=== PATIENT | female | born 1995 | race Caucasian/White ===

== ENCOUNTER 2024-09-29 20:36 | Emergency (ER) | payer OTHER, SELFPAY ==
[2024-09-29 20:56] VITALS: BP 127/80; PULSE 99; RESP 18; TEMP 36.9; O2SAT 100
--- NOTE | 2024-09-29 20:59 | ED_ITS ---
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 Patient complains of left knee pain, states she was at work when she was hit in the left knee with a forklift that was caring a pile of wood. Patient states that incident happened around 4:00 p.m. this afternoon. Patient states that her knee was squished against boxes and the forklift. Patient reports that it hit her on the lateral aspect of her left knee. Patient states she did take ibuprofen and acetaminophen around 4:00 p.m. and does have some improvement of pain. Patient denies any tingling, numbness, no other injuries or complaints, patient is not on chronic anticoagulation. Related Data Home Medications ?Medication ?Instructions ?Recorded ?Confirmed No Known Home Medications 09/29/24 08/0 03/25 Allergies Allergy/AdvReac Type Severity Reaction Status Date / Time No Known Drug Allergies Allergy Verified 09/29/24 20:59 Review of Systems Narrative: Past medical history, past surgical history, medications, allergies, family history, and social history were reviewed with the patient. No additional perti nent items. A medically appropriate review of systems was performed with pertinent positives and negatives noted in HPI, all other systems negative. [facility] Medical History (Updated 09/29/24 @ 23:30 by Valeri Durham MD) Shoulder pain ?M25.519 - Pain in unspecified shoulder (ICD-10) Neck Pain ?M54.2 - Cervicalgia (ICD-10) Social History Smoking Status: Light tobacco smoker How often do you have a drink containing alcohol: 2-3 times a week How many standard drinks containing alcohol do you have on a typical day: 1 or 2 AUDIT-C Alcohol total score: 3 Non-prescribed substance use: denies use Exam Narrative: Exam Narrative: General: Afebrile, no acute distress HEENT: Normocephalic, atraumatic, conjunctiva normal. MMM Neck: non-tender, supple Cardio: regular rate. regular rhythm Resp: Normal work of breathing, no respiratory distress, lungs clear bilaterally, no wheezing, rhonchi, rales Chest/Back: no visual signs of trauma, no midline tenderness, no CVA tenderness Abdomen: soft, non distension, no tenderness, no peritoneal signs Neuro: alert and fully oriented. CN II-XII intact. Grossly normal strength and sensation in all extremities. MSK: +Left knee with swelling, ecchymosis noted to left lower lateral aspect of knee and left lateral aspect of proximal tib/fib, TTP, decrease ROM of knee 2/2 to pain, swelling, compartments soft, distally NVI with PT and DP intact Integumentary/Skin: no rash visualized, normal color Psych: normal affect, normal behavior Const: Vital Signs, click to edit/add: Vital Signs - 24 hr 09/29/24 20:56 Temperature 98.4 F Pulse Rate [Right Pulse Oximeter] 99 Respiratory Rate 18 Blood Pressure [Ri ght Upper Arm] 127/80 Pulse Oximetry 100 Oxygen Delivery Me thod Room Air Course Vital Signs Vital signs: Initial Vital Signs Temperature 98.4 F 09/29/24 20:56 Temperature Source Temporal Artery Scan 09/29/24 20:56 Pulse Rate 99 09/29/24 20:56 Respiratory Rate 18 09/29/24 20:56 Blood Pressure 127/80 09/29/24 20:56 Blood Pressure Mean 95 09/29/24 20:56 Blood Pressure Position Sitting 09/29/24 20:56 Pulse Oximetry 100 09/29/24 20:56 Oxygen Delivery Method Room Air 09/29/24 20:56 Vital Signs Temperature 98.4 F 09/29/24 20:56 Pulse Rate 99 09/29/24 20:56 Respiratory Rate 18 09/29/24 20:56 Blood Pressure 127/80 09/29/24 20:56 Pulse Oximetry 100 09/29/24 20:56 Oxygen Delivery Method Room Air 09/29/24 20:56 Temperature 98.4 F 09/29/24 20:56 Pulse Rate 99 09/29/24 20:56 Respiratory Rate 18 09/29/24 20:56 Blood Pressure 127/80 09/29/24 20:56 Pulse Oximetry 100 09/29/24 20:56 Oxygen Delivery Method Room Air 09/29/24 20:56 Medications Administered Medications: Discontinued Medications Generic Name Dose Route Start Last Admin Trade Name Freq PRN Reason Stop Dose Admin Oxycodone HCl 5 mg 09/29/24 21:30 09/29/24 21:34 Oxycodone 5 Mg Tablet PO 09/29/24 21:31 5 mg ONCE ONE Administration MDM - Extremity Injury (Lower) MDM Narrative Medical decision making narrative: Mayra is a 29-year-old female who presents the emergency department for evaluation left knee pain and being hit by forklift around 4pm this afternoon. Upon arrival patient is nontoxic appearing, afebrile, in distress secondary to pain patient hemodynamically stable vital signs within normal limits. Differential diagnosis includes was not limited to fracture versus dislocation versus ecchymosis/contusion/hematoma/effusion among others. Patient was treated with oxycodone, x-rays performed. I personally reviewed and interpreted x-rays of the left knee and x-rays of the tib/fib which demonstrate no acute fracture, dislocation, significant joint effusion. no acute traumatic injury. There is an of long sclerotic lesion along the posterior medial cortex of the proximal fibula 1 x 5 x 0.7 cm maximum dimension, may representing a nonaggressive bone lesion such as melorheostosis. I discussed results with patient and family. On re-evaluation patient resting comfortably reports improvement of symptoms. I discussed results and incidental findings with patient. Patient feels comfortable discharge home and close outpatient follow-up with her primary care provider, weight-bearing as tolerated, Tylenol and ibuprofen as needed for pain, ice, elevation. Patient declined anything stronger for pain to go home with. Strict return precautions discussed if severe pain, tingling, numbness, weakness, any worsening symptoms. Patient and spouse understand agrees the plan. Discharge Plan Discharge Clinical Impression: Acute pain of left knee Patient Disposition: Home, Self-Care Condition: Improved Additional Instructions: Please follow-up with your primary care provider in the next 3-5 days for further evaluation and follow-up. Please call to schedule appointment. Your x- rays today did not show any fractures or dislocation of your bones. 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 Please follow-up with your primary care provider regarding this. Please alternate taking Tylenol 1000 mg and ibuprofen 600 mg every 6 hours as needed for pain. If you alternate these medications you should be taking something every 3 hours. Please ice on and off for the next 1-2 days. Please bear weight as tolerated. Return to the emergency department if severe pain, weakness in your lower extremity, tingling, numbness, worsening symptoms. It was a pleasure taking care of you today. We hope you feel better soon. Prescriptions: No Action No Known Home Medications Follow Up/Referrals: Provider,Not a Local [Primary Care Provider, Family Practice] Stand Alone Forms: [employer] Info Instructions
--- NOTE | 2024-09-29 21:01 | CRLHL7_ITS ---
For Patients: As a result of the Cures Act, medical imaging exams and procedure reports are released immediately into your electronic medical record. You may view this report before your referring provider. If you have questions, please contact your health care provider. INDICATION: Struck in knee by forklift, injury TECHNIQUE: Knee radiograph 3 views left COMPARISON: None FINDINGS: Bone: There is an oblong sclerotic lesion present along the posteromedial cortex of the proximal fibula, measuring 1 x 5 x 0.7 cm max dimension. This may represent a nonaggressive bone lesion such as melorheostosis. Joint: The medial, lateral, and patellofemoral compartments are unremarkable. No significant knee effusion is seen. Soft tissue: Unremarkable. No radiopaque foreign bodies are seen. IMPRESSION: 1. No acute osseous injuries or abnormalities are noted. Dictated by Aidan Jones MD @ 09/29/2024 10:15:01 PM Dictated by: Aidan Jones MD @ 09/29/2024 22:15:05 (Electronically Signed)
--- NOTE | 2024-09-29 21:30 | CRLHL7_ITS ---
For Patients: As a result of the Cures Act, medical imaging exams and procedure reports are released immediately into your electronic medical record. You may view this report before your referring provider. If you have questions, please contact your health care provider. INDICATION: Struck in knee by forklift, trauma, tibia injury TECHNIQUE: Tibia-fibula radiograph 2 views left COMPARISON: None FINDINGS: Bone: There is an oblong sclerotic lesion present within the proximal fibular diaphysis which may represent a nonaggressive bone lesion such as melorheostosis. No acute osseous injuries or aggressive bone lesions are identified. Joint: The visualized knee and ankle joints are unremarkable. No significant joint effusion is seen. Soft tissue: Unremarkable. No radiopaque foreign bodies are seen. IMPRESSION: 1. No acute osseous injuries or abnormalities are noted. Dictated by Aidan Jones MD @ 09/29/2024 10:16:07 PM Dictated by: Aidan Jones MD @ 09/29/2024 22:16:13 (Electronically Signed)
== END 2024-09-29 23:54 | disposition home or self-care (01) ==
PROVIDERS: Emergency Provider Emergency Medicine
DX: M25.562 Pain in left knee (principal); W22.8XXA Striking against or struck by other objects, initial encounter
CPT/HCPCS: 73562; 73590; 99283; 99285; A9270

== ENCOUNTER 2024-10-24 08:13 | Outpatient (CLI) | payer OTHER, SELFPAY ==
--- NOTE | 2024-10-24 08:15 | CRLHL7_ITS ---
For Patients: As a result of the Century Cures Act, medical imaging exams and procedure reports are released immediately into your electronic medical record. You may view this report before your referring provider. If you have questions, please contact your health care provider. CLINICAL INDICATION: Left knee contusion. COMPARISON STUDIES: Radiographs from 09/29/2024. TECHNICAL: Noncontrast MRI of the left knee. 1.5 sigrid MRI scanner. Axial, sagittal and coronal T1, PD, PD FS and T2 FS images. FINDINGS: MEDIAL COMPARTMENT: Medial Meniscus: Intact. Articular Cartilage: Maintained. LATERAL COMPARTMENT: Lateral Meniscus: Intact. Articular Cartilage: Maintained. PATELLOFEMORAL COMPARTMENT: Articular Cartilage: Mild heterogeneity of the patellar articular cartilage compatible with mild softening. No focal surface defect. Trochlear articular cartilage maintained. LIGAMENTS: Anterior Cruciate Ligament: Intact. Posterior Cruciate Ligament: Intact. MEDIAL COLLATERAL LIGAMENT AND POSTEROMEDIAL CORNER COMPLEX: Medial Collateral Ligament: Intact. Medial Head of the Gastrocnemius and Semimembranosus Tendons: Normal. LATERAL COLLATERAL LIGAMENT COMPLEX AND POSTEROLATERAL CORNER COMPLEX: Fibular Collateral Ligament: Normal. Distal Biceps Femoris Tendon Complex: Normal. Iliotibial Band: Normal. Popliteus Tendon: Normal. Posterolateral Corner Capsule: Normal. EXTENSOR MECHANISM: Distal Quadriceps Tendon: Intact. Patellar Tendon: Intact. Medial Patellar Retinaculum and Medial Patellofemoral Ligament: Intact. Lateral Patellar Retinaculum: Intact. Normal patellar alignment. No patella marcie. Normal trochlear depth. Normal lateral trochlear inclination. JOINT SPACE AND CAPSULE: No significant joint effusion. No joint bodies. BONES AND SOFT TISSUES: There is no acute fracture. The sclerosis within the proximal fibula may relate to melorheostosis versus bone island/enostosis. Probable remote healed NOF of the posteromedial proximal tibial metaphysis.No significant popliteal cyst.No space-occupying hematoma. IMPRESSION: 1. No ligament disruption, acute fracture or joint effusion. 2. Menisci intact. 3. Mild chondromalacia of the patella. 4. No space-occupying hematoma. Dictated by Donovan Ziegler MD @ 10/25/2024 8:09:09 AM (Electronically Signed)
== END 2024-10-24 08:14 | disposition home or self-care (01) ==
PROVIDERS: Visit Provider Family Medicine
DX: M25.562 Pain in left knee (principal); M22.42 Chondromalacia patellae, left knee; S80.02XD Contusion of left knee, subsequent encounter
CPT/HCPCS: 73721; T1013

== ENCOUNTER 2024-11-28 14:47 | Outpatient (RCR) | payer OTHER, SELFPAY | END 2025-01-04 13:42 | disposition home or self-care (01) | PROVIDERS: Visit Provider Orthopaedic Surgery Sports Medicine | DX: M25.562 Pain in left knee (principal); Z02.6 Encounter for examination for insurance purposes; Z51.89 Encounter for other specified aftercare | CPT/HCPCS: 97110; 97140; 97161; T1013 ==